=== PATIENT | male | born 1935 | race Caucasian/White ===

== ENCOUNTER 2017-07-30 05:30 | Inpatient (IN) | payer MEDICARE, OTHER ==
[2017-07-24 14:47] LABS: BASOPHILS % (AUTO) 0.6 % (0-1); EOSINOPHILS # (AUTO) 0.2 X10'3 (0-0.9); EOSINOPHILS % (AUTO) 3.2 % (0-6); LYMPHOCYTES % (AUTO) 20.7 % (21-51); MEAN CORPUSCULAR HEMOGLOBIN 30.4 PG (27.0-31.0); MEAN CORPUSCULAR HGB CONC 32.8 % (33.0-36.5); MEAN CORPUSCULAR VOLUME 92.6 FL (78-98); MEAN PLATELET VOLUME 8.9 FL (7.4-10.4); MONOCYTES # (AUTO) 0.5 X10'3 (0-0.9); NEUTROPHILS # (AUTO) 3.4 X10'3 (1.8-7.7); NEUTROPHILS % (AUTO) 66.5 % (42-75); PRE OP HEMATOCRIT 41.5 % (42.0-52.0); PRE OP HEMOGLOBIN 13.6 g/dL (14.0-17.9); PRE OP PLATELET COUNT 202 X10'3 (140-440); RED BLOOD COUNT 4.48 X10'6 (4.70-6.10); RED CELL DISTRIBUTION WIDTH 14.6 % (11.5-14.5)
[2017-07-24 15:13] LABS: ALBUMIN 3.1 G/DL (3.4-5.0); ALBUMIN/GLOBULIN RATIO 0.8 (1.1-1.5); ALKALINE PHOSPHATASE 72 IU/L (46-116); BLOOD UREA NITROGEN 24 MG/DL (7-18); CALCIUM 8.4 MG/DL (8.5-10.1); CHLORIDE 107 MMOL/L (99-107); PRE OP ALT 29 U/L (30-65); PRE OP ANION GAP -1 (8-16); PRE OP AST 21 U/L (10-37); PRE OP BILIRUB, TOTAL 0.3 MG/DL (0.0-1.0); PRE OP GLUCOSE 139 MG/DL (70-104); PRE OP POTASSIUM 3.9 MMOL/L (3.4-5.1); PRE OP SODIUM 144 MMOL/L (135-145); TOTAL CARBON DIOXIDE 37.9 MMOL/L (24-32); TOTAL PROTEIN 6.9 G/DL (6.4-8.2); eGFR 45 ML/MIN
[2017-07-24 19:26] LABS: HEMOGLOBIN A1C 5.8 % (4.5-6.2)
[~2017-07-30] VITALS: Ht 165.1 cm; Wt 83.0 kg
[2017-07-30] VITALS (18 sets, daily range): BP systolic 107–153; BP diastolic 60–86
[~2017-07-30 05:30] MED LIST: CARV-50 PO; DOCUMENT DATE & TIME OF BETA-BLOCKER PO ONE; ENOX40DI11 SQ; FINA5TAB11 PO; FURO20TA4 PO; POTA8TAB8 PO; TERA10CA4 PO; WARF2TAB7 PO; acetaminophen 325mg tablet PO ONE; ceFAZolin 2gm in dextrose, iso 100 ML IV ONE; famotidine 20mg tablet PO ONE; gabapentin 300mg capsule PO ONE; metoclopramide 5 mg/ml inj IV ONE; oxyCODONE SR 10mg (sust. release) tab PO ONE; ringers solution, lacted 1,000 ML IV SCH; vancomycin inj 1,500 MG in normal saline 300ml IV soln IV ONE
[2017-07-30] MEDS ORDERED: LIDOcaine 1% (10mg/ml) 2ml vial ONE (06:20)
[2017-07-30] MEDS ORDERED: vancomycin 1,000mg inj ONE (06:49)
[2017-07-30] MEDS ORDERED: ceFAZolin 1000mg inj ONE (06:49)
[2017-07-30 07:29] LABS: INR 1.1 INR; PRE OP PARTIAL THROMB. TIME 29 SECONDS (22-35); PROTHROMBIN TIME 10.9 SECONDS (9.0-12.0)
[2017-07-30] MEDS ORDERED: midazolam 2 mg/2 ml injection ONE ×2 (08:05)
[2017-07-30] MEDS ORDERED: fentaNYL/PF 50MCG/1 ML 2ML syringe ONE (08:05)
[2017-07-30] MEDS ORDERED: MORPHINE SULFATE/PF 0.5 MG/ML 10ML AMPUL ONE (08:06)
[2017-07-30] MEDS ORDERED: BUPIVAcaine/PF 7.5mg/ml (0.75%) 10ml vial ONE (08:08)
[2017-07-30] MEDS ORDERED: epiNEPHrine 1 mg/ml inj ONE (09:11)
[2017-07-30] MEDS ORDERED: ePHEDrine 50MG/ML INJ. ONE (09:11)
[2017-07-30] MEDS ORDERED: phenylephrine 10mg/ml inj IV ONE (09:11)
[2017-07-30] MEDS ORDERED: ringers solution, lacted 1,000 ML IV SCH (09:51)
[2017-07-30] MEDS ORDERED: HYDROmorphone 1 mg/ml syringe IV PRN ×2 (09:55)
[2017-07-30] MEDS ORDERED: diphenhydrAMINE 50 mg/ml inj IV PRN (09:55)
[2017-07-30] MEDS ORDERED: ondansetron/PF 4mg/2ml inj IV PRN ×2 (09:55)
[2017-07-30] MEDS ORDERED: magnesium hydroxide 30ml (MOM) UD suspension PO PRN (10:20)
[2017-07-30] MEDS ORDERED: diphenhydrAMINE 25mg capsule PO PRN ×2 (10:20)
[2017-07-30] MEDS ORDERED: bisacodyl 10mg suppository rectal RC PRN (10:20)
[2017-07-30] MEDS ORDERED: acetaminophen 325mg tablet PO PRN (10:20)
[2017-07-30] MEDS ORDERED: propofol inj 20 ML IV ONE (10:22)
[2017-07-30] MEDS ORDERED: LIDOcaine 1%/PF (10mg/ml) 5ml vial ONE (10:22)
[2017-07-30] MEDS: potassium cl 20mEq in 1/2 NS 1,000 ML IV SCH ×2 (12:57→20:29)
[2017-07-30] MEDS: gabapentin 300mg capsule PO SCH ×2 (13:00→20:32)
[2017-07-30] MEDS: acetaminophen 325mg tablet PO SCH ×2 (14:00→20:32)
[2017-07-30] MEDS: oxyCODONE IR 5mg (immed. release) tablet PO PRN ×3 (15:09→20:35)
[2017-07-30] MEDS: cefazolin 1gm/NS 100mL 100 ML IV SCH ×2 (17:25→23:55)
[2017-07-30] MEDS ORDERED: vancomycin/NS 1 GM ADD-VANTAGE 250 ML IV SCH (20:00)
[2017-07-30] MEDS: ondansetron/PF 4mg/2ml inj IV PRN (20:29)
[2017-07-30] MEDS: warfarin 3mg tablet PO SCH (20:31)
[2017-07-30] MEDS: celeCOXIB 100mg capsule PO SCH (20:31)
[2017-07-30] MEDS: terazosin 5mg capsule PO SCH ×2 (20:32→20:36)
[2017-07-30] MEDS: finasteride 5mg tablet PO SCH (20:32)
[2017-07-30] MEDS: sennosides 8.6mg tablet PO SCH (20:32)
[2017-07-31 02:00] VITALS: BP 115/55
[2017-07-31] MEDS: acetaminophen 325mg tablet PO SCH ×4 (02:05→20:33)
[2017-07-31] MEDS: potassium cl 20mEq in 1/2 NS 1,000 ML IV SCH ×4 (02:17→23:20)
[2017-07-31] MEDS: oxyCODONE IR 5mg (immed. release) tablet PO PRN ×3 (04:31→18:58)
[2017-07-31 06:00] VITALS: BP 128/60
[2017-07-31 06:10] LABS: BASOPHILS % (AUTO) 0.1 % (0-1); EOSINOPHILS # (AUTO) 0.1 X10'3 (0-0.9); HEMOGLOBIN 11.9 g/dl (14.0-17.9); LYMPHOCYTES # (AUTO) 0.5 X10'3 (1.1-4.8); LYMPHOCYTES % (AUTO) 5.2 % (21-51); MEAN CORPUSCULAR HEMOGLOBIN 30.3 PG (27.0-31.0); MEAN PLATELET VOLUME 8.8 FL (7.4-10.4); MONOCYTES # (AUTO) 0.8 X10'3 (0-0.9); MONOCYTES % (AUTO) 8.5 % (2-12); NEUTROPHILS # (AUTO) 8.1 X10'3 (1.8-7.7); NEUTROPHILS % (AUTO) 85.2 % (42-75); PLATELET COUNT 150 X10'3 (140-440); RED BLOOD COUNT 3.91 X10'6 (4.70-6.10); WHITE BLOOD COUNT 9.5 X10'3 (4.5-11.0)
[2017-07-31 06:24] LABS: INR 1.1 INR
[2017-07-31 06:44] LABS: ANION GAP 4 (8-16); CHLORIDE 104 MMOL/L (99-107); POTASSIUM 4.7 MMOL/L (3.5-5.1); SODIUM 138 MMOL/L (135-145); TOTAL CARBON DIOXIDE 29.7 MMOL/L (24-32)
[2017-07-31] MEDS ORDERED: HYDROmorphone inj. 0.5 MG/0.5 ML DISP.SYRIN IV PRN (07:40)
[2017-07-31] MEDS ORDERED: HYDROmorphone 1 mg/ml syringe IV PRN (07:40)
[2017-07-31] MEDS ORDERED: enoxaparin 40mg/0.4ml syringe SQ SCH (08:00)
[2017-07-31] MEDS: furosemide 20MG tablet PO SCH (08:00)
[2017-07-31] MEDS: celeCOXIB 100mg capsule PO SCH ×2 (08:01→20:33)
[2017-07-31] MEDS: carVEDilol 12.5mg tablet PO SCH (08:01)
[2017-07-31] MEDS: gabapentin 300mg capsule PO SCH ×3 (08:02→20:33)
[2017-07-31] MEDS: potassium chloride 8mEq ER tablet PO SCH (08:02)
[2017-07-31] MEDS: enoxaparin 40mg/0.4ml syringe SQ SCH (08:03)
[2017-07-31 10:00] VITALS: BP 107/59
[2017-07-31 18:00] VITALS: BP 107/60
[2017-07-31] MEDS: LACTOSE-FREE FOOD 237ML (BOOST) PO SCH (18:58)
[2017-07-31] MEDS: warfarin 3mg tablet PO SCH (20:34)
[2017-07-31] MEDS: terazosin 5mg capsule PO SCH (20:36)
[2017-07-31] MEDS: finasteride 5mg tablet PO SCH (20:36)
[2017-07-31] MEDS: sennosides 8.6mg tablet PO SCH (20:42)
[2017-07-31] MEDS ORDERED: warfarin 3mg tablet PO SCH (21:00)
[2017-07-31 22:00] VITALS: BP 84/57
[2017-08-01 02:00] VITALS: BP 84/53
[2017-08-01] MEDS: acetaminophen 325mg tablet PO SCH ×2 (02:00→08:58)
[2017-08-01] MEDS: oxyCODONE IR 5mg (immed. release) tablet PO PRN (05:31)
[2017-08-01 06:00] VITALS: BP 91/53
[2017-08-01] MEDS: potassium cl 20mEq in 1/2 NS 1,000 ML IV SCH (06:52)
[2017-08-01 07:28] LABS: INR 1.1 INR; PROTHROMBIN TIME 11.4 SECONDS (9.0-12.0)
[2017-08-01 07:48] LABS: BASOPHILS % (AUTO) 0.2 % (0-1); EOSINOPHILS # (AUTO) 0.1 X10'3 (0-0.9); EOSINOPHILS % (AUTO) 0.8 % (0-6); HEMATOCRIT 28.8 % (42.0-52.0); HEMOGLOBIN 9.9 g/dl (14.0-17.9); LYMPHOCYTES # (AUTO) 0.7 X10'3 (1.1-4.8); LYMPHOCYTES % (AUTO) 7.4 % (21-51); MEAN CORPUSCULAR HEMOGLOBIN 31.3 PG (27.0-31.0); MEAN CORPUSCULAR HGB CONC 34.6 % (33.0-36.5); MEAN CORPUSCULAR VOLUME 90.7 FL (78-98); MEAN PLATELET VOLUME 9.3 FL (7.4-10.4); MONOCYTES # (AUTO) 1.2 X10'3 (0-0.9); MONOCYTES % (AUTO) 12.2 % (2-12); NEUTROPHILS % (AUTO) 79.4 % (42-75); PLATELET COUNT 131 X10'3 (140-440); RED BLOOD COUNT 3.17 X10'6 (4.70-6.10); RED CELL DISTRIBUTION WIDTH 13.4 % (11.5-14.5)
[2017-08-01] MEDS: LACTOSE-FREE FOOD 237ML (BOOST) PO SCH ×3 (08:00→20:31)
[2017-08-01] MEDS: gabapentin 300mg capsule PO SCH ×3 (08:56→20:31)
[2017-08-01] MEDS: carVEDilol 12.5mg tablet PO SCH (08:56)
[2017-08-01] MEDS: celeCOXIB 100mg capsule PO SCH ×2 (08:56→20:28)
[2017-08-01] MEDS: potassium chloride 8mEq ER tablet PO SCH (08:57)
[2017-08-01] MEDS: furosemide 20MG tablet PO SCH (08:59)
[2017-08-01] MEDS: enoxaparin 40mg/0.4ml syringe SQ SCH (08:59)
[2017-08-01 10:00] VITALS: BP 108/56
[2017-08-01] MEDS ORDERED: acetaminophen 325mg tablet PO PRN (10:20)
[2017-08-01] MEDS: ondansetron/PF 4mg/2ml inj IV PRN (15:07)
[2017-08-01 18:00] VITALS: BP 113/66
[2017-08-01] MEDS: terazosin 5mg capsule PO SCH (20:30)
[2017-08-01] MEDS: finasteride 5mg tablet PO SCH (20:30)
[2017-08-01] MEDS: sennosides 8.6mg tablet PO SCH (20:30)
[2017-08-01] MEDS ORDERED: warfarin 10mg tablet PO ONE (21:00)
[2017-08-01 22:38] VITALS: BP 109/66
[2017-08-02] MEDS: oxyCODONE IR 5mg (immed. release) tablet PO PRN ×2 (05:36→10:36)
[2017-08-02 06:00] VITALS: BP 112/63
[2017-08-02 06:15] LABS: BASOPHILS % (AUTO) 0 % (0-1); EOSINOPHILS # (AUTO) 0.2 X10'3 (0-0.9); EOSINOPHILS % (AUTO) 2.7 % (0-6); HEMATOCRIT 30.4 % (42.0-52.0); HEMOGLOBIN 9.9 g/dl (14.0-17.9); LYMPHOCYTES # (AUTO) 0.6 X10'3 (1.1-4.8); LYMPHOCYTES % (AUTO) 7.2 % (21-51); MEAN CORPUSCULAR HEMOGLOBIN 30.3 PG (27.0-31.0); MEAN CORPUSCULAR HGB CONC 32.5 % (33.0-36.5); MEAN CORPUSCULAR VOLUME 93.1 FL (78-98); MEAN PLATELET VOLUME 9.1 FL (7.4-10.4); MONOCYTES % (AUTO) 11.8 % (2-12); NEUTROPHILS # (AUTO) 6.4 X10'3 (1.8-7.7); NEUTROPHILS % (AUTO) 78.3 % (42-75); PLATELET COUNT 136 X10'3 (140-440); RED BLOOD COUNT 3.26 X10'6 (4.70-6.10); RED CELL DISTRIBUTION WIDTH 14.4 % (11.5-14.5); WHITE BLOOD COUNT 8.2 X10'3 (4.5-11.0)
[2017-08-02 06:34] LABS: PROTHROMBIN TIME 10.4 SECONDS (9.0-12.0)
[2017-08-02] MEDS: carVEDilol 12.5mg tablet PO SCH (07:58)
[2017-08-02] MEDS: celeCOXIB 100mg capsule PO SCH (07:58)
[2017-08-02] MEDS: gabapentin 300mg capsule PO SCH (07:59)
[2017-08-02] MEDS: potassium chloride 8mEq ER tablet PO SCH (07:59)
[2017-08-02] MEDS: furosemide 20MG tablet PO SCH (07:59)
[2017-08-02] MEDS: enoxaparin 40mg/0.4ml syringe SQ SCH (08:01)
[2017-08-02] MEDS: LACTOSE-FREE FOOD 237ML (BOOST) PO SCH (08:13)
[2017-08-02 10:00] VITALS: BP 92/53
== END 2017-08-02 12:30 | DRG 470 ==
LOC: PAS IN 05:30 → EDSTATUS 07:30 → ORTHO 4S 11:50
PROVIDERS: ADMIT Orthopaedic Surgery; ATTEND Orthopaedic Surgery
PROC: 0SR906Z Replacement of Right Hip Joint with Oxidized Zirconium on Polyethylene Synthetic Substitute, Open Approach (ICD-10-PCS; principal; 2017-07-30 08:11)
DX: M16.11 Unilateral primary osteoarthritis, right hip (principal); Z68.30 Body mass index [BMI] 30.0-30.9, adult; D62 Acute posthemorrhagic anemia; N40.0 Benign prostatic hyperplasia without lower urinary tract symptoms; E66.3 Overweight; M19.90 Unspecified osteoarthritis, unspecified site; I10 Essential (primary) hypertension; Z79.01 Long term (current) use of anticoagulants; Z86.718 Personal history of other venous thrombosis and embolism
CPT/HCPCS: 36415; 72170; 80051; 80053; 83036; 85025; 85610; 85730; 86885; 86900; 86901; 87070; 97116; 97161; 97530; A6255; A6258; A6449; A7000; C1758; C1776; C9250; J0171; J0690; J1170; J1650; J2001; J2250; J2274; J2370; J2405; J2704; J2765; J3010; J3370; J3490; J7030; J7120

== ENCOUNTER 2017-08-04 02:42 | Inpatient (IN) | payer MEDICARE, OTHER ==
[~2017-08-04] VITALS: Ht 188 cm; Wt 113.6 kg
[~2017-08-04 02:42] MED LIST changes: -DOCUMENT DATE & TIME OF BETA-BLOCKER PO ONE; -acetaminophen 325mg tablet PO ONE; -ceFAZolin 2gm in dextrose, iso 100 ML IV ONE; -famotidine 20mg tablet PO ONE; -gabapentin 300mg capsule PO ONE; -metoclopramide 5 mg/ml inj IV ONE; -oxyCODONE SR 10mg (sust. release) tab PO ONE; -ringers solution, lacted 1,000 ML IV SCH; -vancomycin inj 1,500 MG in normal saline 300ml IV soln IV ONE
[2017-08-04] MEDS ORDERED: normal saline 1000ML IV soln IVB ONE ×2 (02:50→03:50)
[2017-08-04 03:03] LABS: BASOPHILS % (AUTO) 0.2 % (0-1); EOSINOPHILS # (AUTO) 0.1 X10'3 (0-0.9); EOSINOPHILS % (AUTO) 1.3 % (0-6); HEMATOCRIT 33.7 % (42.0-52.0); HEMOGLOBIN 11.3 g/dl (14.0-17.9); LYMPHOCYTES # (AUTO) 0.6 X10'3 (1.1-4.8); LYMPHOCYTES % (AUTO) 5.6 % (21-51); MEAN CORPUSCULAR HGB CONC 33.5 % (33.0-36.5); MEAN CORPUSCULAR VOLUME 92.7 FL (78-98); MEAN PLATELET VOLUME 8.4 FL (7.4-10.4); MONOCYTES % (AUTO) 10.2 % (2-12); NEUTROPHILS # (AUTO) 8.4 X10'3 (1.8-7.7); NEUTROPHILS % (AUTO) 82.7 % (42-75); PLATELET COUNT 223 X10'3 (140-440); RED BLOOD COUNT 3.63 X10'6 (4.70-6.10); RED CELL DISTRIBUTION WIDTH 14.7 % (11.5-14.5); WHITE BLOOD COUNT 10.2 X10'3 (4.5-11.0)
[2017-08-04 03:10] LABS: ABG BASE EXCESS 3.2 mmol/L (-2.0-3.0); ABG HCO3 29.9 mmol/L (22.0-26.0); ABG OXYGEN SATURATION 94.6 % (95-98); ABG PH (T) 7.346 (7.350-7.450); ABG PO2 (T) 68.9 mmHg (83-108); FLOW 2 L/min; FMetHb 0.2 % (0.3-1.12); FO2Hb 93.5 % (94-100); RESPIRATORY RATE (OBSERVED) 14 b/min; TOTAL HEMOGLOBIN 11.7 G/dl (14.0-18.0)
[2017-08-04 03:14] LABS: INR 1.6 INR; PARTIAL THROMBOPLASTIN TIME 35 SECONDS (22-32); PROTHROMBIN TIME 16.1 SECONDS (9.0-12.0)
[2017-08-04] MEDS ORDERED: SENN-161 PO (03:15)
[2017-08-04] MEDS ORDERED: MULT1CAP44 PO (03:15)
[2017-08-04] MEDS ORDERED: PER5325T PO (03:15)
[2017-08-04] MEDS ORDERED: DIPH25CA83 PO (03:15)
[2017-08-04 03:40] LABS: ALANINE AMINOTRANSFERASE 59 U/L (12-78); ALBUMIN 2.2 G/DL (3.4-5.0); ALBUMIN/GLOBULIN RATIO 0.5 (1.1-1.5); ALKALINE PHOSPHATASE 87 IU/L (46-116); ANION GAP 4 (8-16); ASPARTATE AMINO TRANSFERASE 38 U/L (10-37); BILIRUBIN,TOTAL 0.4 MG/DL (0.1-1.0); BLOOD UREA NITROGEN 40 MG/DL (7-18); BUN/CREATININE RATIO 12.5 (5.4-32.0); CALCIUM 9.1 MG/DL (8.5-10.1); CHLORIDE 104 MMOL/L (99-107); GLUCOSE 134 MG/DL (70-104); MAGNESIUM 2.5 MG/DL (1.5-2.4); SODIUM 137 MMOL/L (135-145); TOTAL CARBON DIOXIDE 28.9 MMOL/L (24-32); TOTAL PROTEIN 6.8 G/DL (6.4-8.2); eGFR 19 ML/MIN
[2017-08-04 03:47] LABS: POTASSIUM 6.6 MMOL/L (3.5-5.1)
[2017-08-04] MEDS ORDERED: dextrose 50%-water 50ml dispensing syringe IV ONE ×2 (03:50→18:15)
[2017-08-04] MEDS ORDERED: insulin regular, human 10 units/0.1 ml syringe IV ONE ×2 (03:50→18:15)
[2017-08-04] MEDS ORDERED: sodium polystyrene sulfonate 15gm/60ml oral suspension PR ONE (03:50)
[2017-08-04 04:25] LABS: CLARITY,URINE Clear (Clear); COLOR,URINE Yellow (Yellow); GLUCOSE, URINE Negative (Neg); KETONES,URINE Negative (Neg); LEUKOCYTE ESTERASE ,URINE Negative (Neg); NITRITES, URINE Negative (Neg); OCCULT BLOOD,URINE Small (Neg); PROTEIN,URINE Negative (Neg); UROBILINOGEN,URINE 0.2 E.U/dL (0.2-1.0)
[2017-08-04 04:41] LABS: UA COLLECTION TYPE STRAIGHT CATH
[2017-08-04 04:42] LABS: BACTERIA,URINE FEW /HPF (Neg); RBC,URINE 20-50 /HPF (0-2); SQUAMOUS EPITHELIAL CELL,UR FEW /LPF (FEW); WBC,URINE 0-4 /HPF (0-4)
[2017-08-04] MEDS ORDERED: magnesium hydroxide 30ml (MOM) UD suspension PO PRN (05:00)
[2017-08-04] MEDS ORDERED: ondansetron/PF 4mg/2ml inj IV PRN (05:00)
[2017-08-04] MEDS ORDERED: mag hydrox/Alum hydrox/simeth 30ml oral suspension PO PRN (05:00)
[2017-08-04] MEDS ORDERED: oxyCODONE/APAP 5-325mg tablet PO PRN (05:05)
[2017-08-04] MEDS: normal saline 1000ml 1,000 ML IV SCH (05:18)
[2017-08-04] MEDS: carVEDilol 12.5mg tablet PO SCH (08:00)
[2017-08-04 09:24] VITALS: BP 127/67
[2017-08-04 12:16] LABS: ALBUMIN 1.9 G/DL (3.4-5.0); ANION GAP 4 (8-16); BLOOD UREA NITROGEN 34 MG/DL (7-18); BUN/CREATININE RATIO 14.2 (5.4-32.0); CALCIUM 8.7 MG/DL (8.5-10.1); CHLORIDE 108 MMOL/L (99-107); GLUCOSE 127 MG/DL (70-104); POTASSIUM 5.7 MMOL/L (3.5-5.1); SODIUM 141 MMOL/L (135-145); TOTAL CARBON DIOXIDE 28.6 MMOL/L (24-32); eGFR 26 ML/MIN
[2017-08-04 18:00] VITALS: BP 161/95
[2017-08-04] MEDS ORDERED: sodium polystyrene sulfonate 15gm/60ml oral suspension PO ONE (18:15)
[2017-08-04] MEDS ORDERED: calcium gluconate inj. 1 GM in normal saline 100ml IV soln 90 ML IV ONE (18:40)
[2017-08-04] MEDS: heparin, porcine 5000 units/ml vial SQ SCH (20:00)
[2017-08-04 21:00] VITALS: BP 152/84
[2017-08-04] MEDS ORDERED: warfarin 3mg tablet PO ONE (21:00)
[2017-08-04] MEDS ORDERED: WARFARIN SODIUM 3 MG PO SCH (21:00)
[2017-08-04] MEDS: terazosin 5mg capsule PO SCH (21:00)
[2017-08-04] MEDS ORDERED: warfarin 2.5mg tablet PO SCH ×2 (21:00)
[2017-08-04] MEDS: finasteride 5mg tablet PO SCH (21:00)
[2017-08-04 22:00] VITALS: BP 174/82
[2017-08-05] MEDS: acetaminophen 325mg tablet PO PRN ×2 (02:49→20:14)
[2017-08-05] MEDS: normal saline 1000ml 1,000 ML IV SCH ×3 (02:51→23:39)
[2017-08-05 06:00] VITALS: BP 157/95
[2017-08-05] MEDS: carVEDilol 12.5mg tablet PO SCH (07:23)
[2017-08-05] MEDS: heparin, porcine 5000 units/ml vial SQ SCH ×2 (07:23→20:14)
[2017-08-05 08:03] LABS: BASOPHILS % (AUTO) 0.5 % (0-1); EOSINOPHILS # (AUTO) 0.2 X10'3 (0-0.9); EOSINOPHILS % (AUTO) 2.9 % (0-6); HEMATOCRIT 31.8 % (42.0-52.0); HEMOGLOBIN 10.4 g/dl (14.0-17.9); LYMPHOCYTES # (AUTO) 0.7 X10'3 (1.1-4.8); LYMPHOCYTES % (AUTO) 8.9 % (21-51); MEAN CORPUSCULAR HEMOGLOBIN 30.2 PG (27.0-31.0); MEAN CORPUSCULAR HGB CONC 32.6 % (33.0-36.5); MEAN CORPUSCULAR VOLUME 92.4 FL (78-98); MEAN PLATELET VOLUME 8.1 FL (7.4-10.4); MONOCYTES # (AUTO) 0.8 X10'3 (0-0.9); MONOCYTES % (AUTO) 11.4 % (2-12); NEUTROPHILS # (AUTO) 5.6 X10'3 (1.8-7.7); NEUTROPHILS % (AUTO) 76.3 % (42-75); PLATELET COUNT 271 X10'3 (140-440); RED BLOOD COUNT 3.44 X10'6 (4.70-6.10); RED CELL DISTRIBUTION WIDTH 14.4 % (11.5-14.5); WHITE BLOOD COUNT 7.4 X10'3 (4.5-11.0)
[2017-08-05 08:05] LABS: INR 1.7 INR; PROTHROMBIN TIME 16.9 SECONDS (9.0-12.0)
[2017-08-05 08:12] LABS: ALANINE AMINOTRANSFERASE 49 U/L (12-78); ALBUMIN 1.9 G/DL (3.4-5.0); ALBUMIN/GLOBULIN RATIO 0.4 (1.1-1.5); ALKALINE PHOSPHATASE 70 IU/L (46-116); ANION GAP 6 (8-16); ASPARTATE AMINO TRANSFERASE 32 U/L (10-37); BILIRUBIN,TOTAL 0.5 MG/DL (0.1-1.0); BLOOD UREA NITROGEN 24 MG/DL (7-18); CALCIUM 8.6 MG/DL (8.5-10.1); CHLORIDE 107 MMOL/L (99-107); GLUCOSE 115 MG/DL (70-104); POTASSIUM 4.7 MMOL/L (3.5-5.1); SODIUM 144 MMOL/L (135-145); TOTAL CARBON DIOXIDE 31.4 MMOL/L (24-32); TOTAL PROTEIN 6.2 G/DL (6.4-8.2); eGFR 45 ML/MIN
[2017-08-05] MEDS ORDERED: furosemide 20 MG/2 ML vial IV ONE (11:00)
[2017-08-05 11:13] VITALS: BP 149/84
[2017-08-05] MEDS: amLODIPine 5mg tablet PO SCH (11:14)
[2017-08-05 18:00] VITALS: BP 129/87
[2017-08-05] MEDS: finasteride 5mg tablet PO SCH (20:12)
[2017-08-05] MEDS: terazosin 5mg capsule PO SCH (20:12)
[2017-08-05] MEDS ORDERED: warfarin 4mg tablet PO ONE (21:00)
[2017-08-05 22:00] VITALS: BP 115/66
[2017-08-06 06:00] VITALS: BP 142/82
[2017-08-06 06:23] LABS: BASOPHILS % (AUTO) 0.6 % (0-1); EOSINOPHILS # (AUTO) 0.2 X10'3 (0-0.9); EOSINOPHILS % (AUTO) 3.3 % (0-6); HEMATOCRIT 29.9 % (42.0-52.0); LYMPHOCYTES # (AUTO) 0.8 X10'3 (1.1-4.8); LYMPHOCYTES % (AUTO) 11.7 % (21-51); MEAN CORPUSCULAR HEMOGLOBIN 30.5 PG (27.0-31.0); MEAN CORPUSCULAR HGB CONC 33.6 % (33.0-36.5); MEAN CORPUSCULAR VOLUME 90.9 FL (78-98); MEAN PLATELET VOLUME 7.7 FL (7.4-10.4); MONOCYTES # (AUTO) 0.9 X10'3 (0-0.9); NEUTROPHILS # (AUTO) 5.1 X10'3 (1.8-7.7); NEUTROPHILS % (AUTO) 71.4 % (42-75); PLATELET COUNT 295 X10'3 (140-440); RED BLOOD COUNT 3.28 X10'6 (4.70-6.10); RED CELL DISTRIBUTION WIDTH 14.4 % (11.5-14.5); WHITE BLOOD COUNT 7.2 X10'3 (4.5-11.0)
[2017-08-06 06:27] LABS: INR 1.8 INR; PROTHROMBIN TIME 18.7 SECONDS (9.0-12.0)
[2017-08-06 06:43] LABS: ALANINE AMINOTRANSFERASE 48 U/L (12-78); ALBUMIN 1.8 G/DL (3.4-5.0); ALBUMIN/GLOBULIN RATIO 0.5 (1.1-1.5); ALKALINE PHOSPHATASE 62 IU/L (46-116); ANION GAP 4 (8-16); ASPARTATE AMINO TRANSFERASE 33 U/L (10-37); BILIRUBIN,TOTAL 0.3 MG/DL (0.1-1.0); BLOOD UREA NITROGEN 19 MG/DL (7-18); BUN/CREATININE RATIO 14.6 (5.4-32.0); CALCIUM 8.2 MG/DL (8.5-10.1); CHLORIDE 108 MMOL/L (99-107); GLUCOSE 109 MG/DL (70-104); POTASSIUM 4.2 MMOL/L (3.5-5.1); SODIUM 145 MMOL/L (135-145); TOTAL CARBON DIOXIDE 33.3 MMOL/L (24-32); TOTAL PROTEIN 5.8 G/DL (6.4-8.2); eGFR 53 ML/MIN
[2017-08-06] MEDS: normal saline 1000ml 1,000 ML IV SCH (06:56)
[2017-08-06] MEDS: carVEDilol 12.5mg tablet PO SCH (07:38)
[2017-08-06] MEDS: amLODIPine 5mg tablet PO SCH (07:38)
[2017-08-06] MEDS: heparin, porcine 5000 units/ml vial SQ SCH (07:39)
[2017-08-06 11:00] VITALS: BP 124/70
[2017-08-06] MEDS ORDERED: warfarin 4mg tablet PO ONE (21:00)
== END 2017-08-06 14:30 | DRG 682 ==
LOC: ER 02:43 → ED HOLD 04:56 → ORTHO 4S 08:45
PROVIDERS: ADMIT Internal Medicine; ATTEND Family Medicine
DX: N17.9 Acute kidney failure, unspecified (principal); G93.41 Metabolic encephalopathy; N13.8 Other obstructive and reflux uropathy; E87.5 Hyperkalemia; R33.8 Other retention of urine; N40.1 Benign prostatic hyperplasia with lower urinary tract symptoms; I10 Essential (primary) hypertension; M19.90 Unspecified osteoarthritis, unspecified site; Z96.641 Presence of right artificial hip joint; Z79.899 Other long term (current) drug therapy; Z79.01 Long term (current) use of anticoagulants; Z86.718 Personal history of other venous thrombosis and embolism
CPT/HCPCS: 36415; 36600; 70450; 71045; 73610; 80048; 80053; 81001; 82140; 82803; 82948; 83735; 84443; 84484; 85018; 85025; 85610; 85730; 87070; 93005; 96361; 96374; 97110; 97116; 97162; 97530; 99285; A4315; A4353; A6449; J0610; J1644; J1815; J7030